=== PATIENT | male | born 1950 | race Hispanic/Latino ===

== ENCOUNTER 2017-06-29 09:00 | Outpatient (CLI) | payer MEDICARE ==
--- NOTE | 2017-06-29 12:57 | XRay Report ---
XRAY LEFT SHOULDER THREE VIEWS: 06/29/17 CLINICAL: Left shoulder pain. FINDINGS: The acromioclavicular joint is widened by greater than 1 cm. No elevation of the clavicle. Normal glenohumeral alignment. Mild glenohumeral joint arthritis with irregularity of the glenoid rim. Normal soft tissues. IMPRESSION: Acromioclavicular separation with minimal displacement of the clavicle . Mild glenohumeral joint arthritis.
== END 2017-06-29 09:01 | disposition home or self-care (01) ==
LOC: SPVIMAG 09:00
PROVIDERS: ATTEND Orthopaedic Surgery
DX: M19.012 Primary osteoarthritis, left shoulder (principal)